=== PATIENT | male | born 1995 | race Caucasian/White ===

== ENCOUNTER 2018-03-01 12:32 | Emergency (ER) | payer MEDICAID, OTHER ==
[~2018-03-01] VITALS: Ht 591.1 cm; Wt 74.0 kg
[2018-03-01 12:41] VITALS: BP 105/73
[2018-03-01] MEDS ORDERED: proparacaine 0.5% ophthalmic drops 15ml EACHEYE ONE (13:05)
[2018-03-01] MEDS ORDERED: erythromycin ophthalmic ointment 1gm tube LEFTEYE ONE (13:05)
[2018-03-01] MEDS ORDERED: fluoroscein sod 10% (100mg/ml) 5ml vial IJ ONE (13:15)
[2018-03-01] MEDS ORDERED: PROPARACAINE/FLUORESCEIN ophthalmic drops 5ml bottle EACHEYE ONE ×2 (13:25)
[2018-03-01] MEDS ORDERED: ERYT1OIN6 RIGHTEYE (15:12)
[2018-03-01] MEDS ORDERED: HYDR-569 PO (15:12)
== END 2018-03-01 15:26 | disposition home or self-care (01) ==
LOC: ER 12:32
DX: T15.01XA Foreign body in cornea, right eye, initial encounter (principal); X58.XXXA Exposure to other specified factors, initial encounter; Y93.89 Activity, other specified; Y92.89 Other specified places as the place of occurrence of the external cause; Y99.8 Other external cause status
CPT/HCPCS: 65222; 99284; A6410; J7030; 65220